=== PATIENT | male | born 1955 | race Caucasian/White ===

== ENCOUNTER 2022-11-16 23:57 | Inpatient (IN) | payer MEDICARE, OTHER ==
[2022-11-17 01:53] VITALS: BMI 14.9
[2022-11-17] MEDS ORDERED: IBUPROFEN 600 MG TABLET (FP) PO PRN (03:06)
[2022-11-17] MEDS ORDERED: BENZOCAINE/MENTHOL (CHLORASEPTIC ) LOZENGE MM PRN (03:06)
[2022-11-17] MEDS ORDERED: POLYETHYLENE GLYCOL (HEALTHYLAX) 3350 17 GM PACKET PO PRN (03:06)
[2022-11-17] MEDS ORDERED: ONDANSETRON *ODT* 4 MG TABLET SL PRN (03:06)
[2022-11-17] MEDS ORDERED: MAGNESIUM HYDROX 2400MG/30ML ORAL SUSPENSION 30 ML CUP PO PRN (03:06)
[2022-11-17] MEDS ORDERED: guaiFENesin 600 MG TABLET.ER (FP) PO PRN (03:06)
[2022-11-17] MEDS ORDERED: IBUPROFEN 400 MG TABLET (FP) PO PRN (03:06)
[2022-11-17] MEDS ORDERED: BISMUTH SUBSALICYLATE 524 MG/30 ML PO PRN (03:06)
[2022-11-17] MEDS ORDERED: LOPERAMIDE HCL 2 MG CAPSULE PO PRN (03:06)
[2022-11-17] MEDS ORDERED: NALOXONE HCL (KLOXXADO) 8 MG SPRAY NS PRN (03:06)
[2022-11-17] MEDS ORDERED: BENZONATATE 200 MG CAPSULE PO PRN (03:06)
[2022-11-17] MEDS ORDERED: MAG HYDROX/AL HYDROX/SIMETH 30 ML UNIT-DOSE CUP PO PRN (03:06)
[2022-11-17] MEDS ORDERED: NALOXONE HCL 0.4 MG/ML VIAL IM PRN (03:06)
[2022-11-17] MEDS ORDERED: chlordiazePOXIDE HCL 25 MG CAPSULE PO PRN (03:38)
[2022-11-17] MEDS ORDERED: chlordiazePOXIDE HCL 25 MG CAPSULE ONE (06:02)
[2022-11-17] MEDS: chlordiazePOXIDE HCL 25 MG CAPSULE PO SCH ×4 (06:05→22:26)
[2022-11-17] MEDS: PRENATAL VITAMINS W/ FOLIC ACID TABLET (FP) PO SCH (10:23)
[2022-11-17] MEDS ORDERED: methaDONE HCL 10 MG TABLET PO SCH (11:30)
[2022-11-17] MEDS: methaDONE 40 MG, methaDONE 30 MG PO SCH (12:00)
[2022-11-17 13:50] LABS: HEMATOCRIT 36.6 % (35.4-49); HEMOGLOBIN 11.9 GM/dL (11.7-16.9); MCH 31.6 pg (25.7-33.7); MCHC 32.5 g/dl (32.0-35.9); MEAN CELL VOLUME 97.2 fl (80-96); MEAN PLT VOLUME 7.7 fl (7.5-11.1); PLATELET COUNT 247 10^3/uL (134-434); RBC 3.77 M/mm3 (4.00-5.60); RDW 13.6 % (11.9-15.9)
[2022-11-17 13:56] LABS: POTASSIUM 3.5 mmol/L (3.5-5.1)
[2022-11-17 14:17] LABS: CALCIUM 8.1 mg/dL (8.5-10.1)
[2022-11-17 14:18] LABS: ALBUMIN 2.7 g/dl (3.4-5.0); BLOOD UREA NITROGEN 17.4 mg/dL (7-18)
[2022-11-17 14:21] LABS: CREATININE 0.9 mg/dL (0.55-1.3)
[2022-11-17 14:23] LABS: BILIRUBIN,TOTAL 0.3 mg/dL (0.2-1); TOT PROT 6.7 g/dl (6.4-8.2)
[2022-11-17] MEDS: MELATONIN 5 MG TABLETS PO SCH (22:26)
[2022-11-17] MEDS: THIAMINE HCL 100 MG TABLET (FP) PO SCH (22:26)
[2022-11-18] MEDS: methaDONE 40 MG, methaDONE 30 MG PO SCH (05:59)
[2022-11-18] MEDS: chlordiazePOXIDE HCL 25 MG CAPSULE PO SCH ×4 (05:59→22:20)
[2022-11-18] MEDS: PRENATAL VITAMINS W/ FOLIC ACID TABLET (FP) PO SCH (10:31)
[2022-11-18] MEDS: THIAMINE HCL 100 MG TABLET (FP) PO SCH (22:19)
[2022-11-18] MEDS: MELATONIN 5 MG TABLETS PO SCH (22:19)
[2022-11-18] MEDS: ACETAMINOPHEN 325 MG TABLET (FP) PO PRN (22:21)
[2022-11-19] MEDS ORDERED: chlordiazePOXIDE HCL 10 MG CAPSULE PO PRN
[2022-11-19] MEDS: chlordiazePOXIDE HCL 10 MG CAPSULE PO SCH ×4 (05:46→22:41)
[2022-11-19] MEDS: methaDONE 40 MG, methaDONE 30 MG PO SCH (05:48)
[2022-11-19] MEDS: PRENATAL VITAMINS W/ FOLIC ACID TABLET (FP) PO SCH (10:27)
[2022-11-19] MEDS ORDERED: BACITRACIN 0.9 GM PACKET TP ONE (15:11)
[2022-11-19] MEDS: ACETAMINOPHEN 325 MG TABLET (FP) PO PRN (15:47)
[2022-11-19] MEDS ORDERED: BACITRACIN ZINC 15 GM TUBE TOPICAL OINTMENT TP SCH (22:00)
[2022-11-19] MEDS: THIAMINE HCL 100 MG TABLET (FP) PO SCH (22:41)
[2022-11-19] MEDS: BACITRACIN 0.9 GM PACKET TP SCH (22:41)
[2022-11-19] MEDS: MELATONIN 5 MG TABLETS PO SCH (22:41)
[2022-11-20] MEDS: chlordiazePOXIDE HCL 10 MG CAPSULE PO SCH ×2 (06:00→17:49)
[2022-11-20] MEDS: methaDONE 40 MG, methaDONE 30 MG PO SCH (06:11)
[2022-11-20] MEDS: BACITRACIN 0.9 GM PACKET TP SCH ×2 (10:38→22:51)
[2022-11-20] MEDS: PRENATAL VITAMINS W/ FOLIC ACID TABLET (FP) PO SCH (10:38)
[2022-11-20] MEDS ORDERED: hydrOXYzine PAMOATE 25 MG CAPSULE (FP) PO ONE (20:05)
[2022-11-20] MEDS: THIAMINE HCL 100 MG TABLET (FP) PO SCH (22:51)
[2022-11-20] MEDS: MELATONIN 5 MG TABLETS PO SCH (22:51)
[2022-11-21] MEDS ORDERED: chlordiazePOXIDE HCL 10 MG CAPSULE PO ONE (05:00)
[2022-11-21] MEDS: methaDONE 40 MG, methaDONE 30 MG PO SCH (05:59)
[2022-11-21] MEDS: BACITRACIN 0.9 GM PACKET TP SCH ×2 (10:20→22:16)
[2022-11-21] MEDS: PRENATAL VITAMINS W/ FOLIC ACID TABLET (FP) PO SCH (10:20)
[2022-11-21] MEDS: amLODIPine BESYLATE 10 MG TABLET (FP) PO SCH (16:32)
[2022-11-21] MEDS: THIAMINE HCL 100 MG TABLET (FP) PO SCH (22:16)
[2022-11-21] MEDS: MELATONIN 5 MG TABLETS PO SCH (22:16)
[2022-11-22] MEDS: methaDONE 40 MG, methaDONE 30 MG PO SCH (05:46)
[2022-11-22] MEDS: BACITRACIN 0.9 GM PACKET TP SCH (10:22)
[2022-11-22] MEDS: amLODIPine BESYLATE 10 MG TABLET (FP) PO SCH (10:22)
[2022-11-22] MEDS: PRENATAL VITAMINS W/ FOLIC ACID TABLET (FP) PO SCH (10:22)
[2022-11-22 15:05] VITALS: BP 124/76; PULSE 86; RESP 18; TEMP 98.3
== END 2022-11-22 12:12 | disposition home or self-care (01) | DRG 897 ==
LOC: YASAS 23:57 → Y3N 11-17 07:07
PROVIDERS: ADMIT Allergy & Immunology; ATTEND Allergy & Immunology
PROC: HZ2ZZZZ Detoxification Services for Substance Abuse Treatment (ICD-10-PCS; principal; 2022-11-17)
DX: F10.230 Alcohol dependence with withdrawal, uncomplicated (principal); F11.20 Opioid dependence, uncomplicated; F17.210 Nicotine dependence, cigarettes, uncomplicated; F41.9 Anxiety disorder, unspecified; I10 Essential (primary) hypertension; F32.A Depression, unspecified; J45.909 Unspecified asthma, uncomplicated; R73.9 Hyperglycemia, unspecified; Z86.19 Personal history of other infectious and parasitic diseases; Z99.89 Dependence on other enabling machines and devices; W01.0XXA Fall on same level from slipping, tripping and stumbling without subsequent striking against object, initial encounter; Y92.232 Corridor of hospital as the place of occurrence of the external cause; Z28.310 Unvaccinated for COVID-19; Z28.9 Immunization not carried out for unspecified reason
CPT/HCPCS: 36415; 80053; 82962; 83036; 85027; 86780; 87635; 93005; 93010

== ENCOUNTER 2022-12-01 22:41 | Inpatient (IN) | payer MEDICARE, OTHER ==
[2022-12-01 23:29] VITALS: BMI 16.5
[2022-12-02] MEDS ORDERED: guaiFENesin 600 MG TABLET.ER (FP) PO PRN (00:12)
[2022-12-02] MEDS ORDERED: NALOXONE HCL (KLOXXADO) 8 MG SPRAY NS PRN (00:12)
[2022-12-02] MEDS ORDERED: NALOXONE HCL 0.4 MG/ML VIAL IM PRN (00:12)
[2022-12-02] MEDS ORDERED: IBUPROFEN 600 MG TABLET (FP) PO PRN (00:12)
[2022-12-02] MEDS ORDERED: POLYETHYLENE GLYCOL (HEALTHYLAX) 3350 17 GM PACKET PO PRN (00:12)
[2022-12-02] MEDS ORDERED: IBUPROFEN 400 MG TABLET (FP) PO PRN (00:12)
[2022-12-02] MEDS ORDERED: MAGNESIUM HYDROX 2400MG/30ML ORAL SUSPENSION 30 ML CUP PO PRN (00:12)
[2022-12-02] MEDS ORDERED: BENZOCAINE/MENTHOL (CHLORASEPTIC ) LOZENGE MM PRN (00:12)
[2022-12-02] MEDS ORDERED: LOPERAMIDE HCL 2 MG CAPSULE PO PRN (00:12)
[2022-12-02] MEDS ORDERED: NICOTINE POLACRILEX 2 MG GUM BUC PRN (00:12)
[2022-12-02] MEDS ORDERED: ACETAMINOPHEN 325 MG TABLET (FP) PO PRN (00:12)
[2022-12-02] MEDS ORDERED: ONDANSETRON *ODT* 4 MG TABLET SL PRN (00:12)
[2022-12-02] MEDS ORDERED: BENZONATATE 200 MG CAPSULE PO PRN (00:12)
[2022-12-02] MEDS ORDERED: BISMUTH SUBSALICYLATE 524 MG/30 ML PO PRN (00:12)
[2022-12-02] MEDS ORDERED: MAG HYDROX/AL HYDROX/SIMETH 30 ML UNIT-DOSE CUP PO PRN (00:12)
[2022-12-02] MEDS ORDERED: diazePAM 5 MG TABLET PO PRN (09:22)
[2022-12-02] MEDS ORDERED: methaDONE HCL 10 MG TABLET PO SCH (09:45)
[2022-12-02] MEDS: methaDONE 40 MG, methaDONE 30 MG PO SCH (09:47)
[2022-12-02] MEDS: diazePAM 5 MG TABLET PO SCH ×3 (10:27→22:42)
[2022-12-02] MEDS: PRENATAL VITAMINS W/ FOLIC ACID TABLET (FP) PO SCH (10:27)
[2022-12-02] MEDS: NICOTINE 14 MG/24 HOURS TOPICAL PATCH TD SCH (10:28)
[2022-12-02] MEDS: THIAMINE HCL 100 MG TABLET (FP) PO SCH (22:42)
[2022-12-02] MEDS: MELATONIN 5 MG TABLETS PO SCH (22:43)
[2022-12-03] MEDS: diazePAM 5 MG TABLET PO SCH ×4 (05:46→22:21)
[2022-12-03] MEDS: methaDONE 40 MG, methaDONE 30 MG PO SCH (05:46)
[2022-12-03] MEDS: PRENATAL VITAMINS W/ FOLIC ACID TABLET (FP) PO SCH (10:22)
[2022-12-03] MEDS: NICOTINE 14 MG/24 HOURS TOPICAL PATCH TD SCH (10:22)
[2022-12-03 10:37] LABS: POTASSIUM 4.9 mmol/L (3.5-5.1)
[2022-12-03 10:47] LABS: ALBUMIN 2.7 g/dl (3.4-5.0); BLOOD UREA NITROGEN 15.1 mg/dL (7-18)
[2022-12-03 10:48] LABS: CALCIUM 8.5 mg/dL (8.5-10.1); HEMATOCRIT 36.8 % (35.4-49); HEMOGLOBIN 11.9 GM/dL (11.7-16.9); MCH 30.6 pg (25.7-33.7); MCHC 32.4 g/dl (32.0-35.9); MEAN CELL VOLUME 94.5 fl (80-96); MEAN PLT VOLUME 8.6 fl (7.5-11.1); PLATELET COUNT 269 10^3/uL (134-434); RBC 3.89 M/mm3 (4.00-5.60); RDW 13.8 % (11.9-15.9); WHITE BLOOD COUNT 5.9 K/mm3 (4.0-10.0)
[2022-12-03 10:50] LABS: CREATININE 0.9 mg/dL (0.55-1.3)
[2022-12-03 10:52] LABS: BILIRUBIN,TOTAL 0.1 mg/dL (0.2-1)
[2022-12-03] MEDS: THIAMINE HCL 100 MG TABLET (FP) PO SCH (22:21)
[2022-12-03] MEDS: MELATONIN 5 MG TABLETS PO SCH (22:21)
[2022-12-04] MEDS: methaDONE 40 MG, methaDONE 30 MG PO SCH (05:29)
[2022-12-04] MEDS: diazePAM 5 MG TABLET PO SCH ×3 (05:29→22:17)
[2022-12-04] MEDS: PRENATAL VITAMINS W/ FOLIC ACID TABLET (FP) PO SCH (09:42)
[2022-12-04] MEDS: NICOTINE 14 MG/24 HOURS TOPICAL PATCH TD SCH (09:42)
[2022-12-04] MEDS ORDERED: LOPERAMIDE HCL 2 MG CAPSULE PO ONE (11:04)
[2022-12-04] MEDS: THIAMINE HCL 100 MG TABLET (FP) PO SCH (22:17)
[2022-12-04] MEDS: MELATONIN 5 MG TABLETS PO SCH (22:17)
[2022-12-05] MEDS: diazePAM 5 MG TABLET PO SCH ×2 (05:44→17:15)
[2022-12-05] MEDS: methaDONE 40 MG, methaDONE 30 MG PO SCH (05:44)
[2022-12-05] MEDS: PRENATAL VITAMINS W/ FOLIC ACID TABLET (FP) PO SCH (10:04)
[2022-12-05] MEDS: NICOTINE 14 MG/24 HOURS TOPICAL PATCH TD SCH (10:04)
[2022-12-05] MEDS ORDERED: amLODIPine BESYLATE 2.5 MG TABLET (FP) PO SCH (11:45)
[2022-12-05] MEDS: THIAMINE HCL 100 MG TABLET (FP) PO SCH (22:14)
[2022-12-05] MEDS: MELATONIN 5 MG TABLETS PO SCH (22:14)
[2022-12-06] MEDS: methaDONE 40 MG, methaDONE 30 MG PO SCH (05:34)
[2022-12-06] MEDS ORDERED: diazePAM 5 MG TABLET PO ONE (06:00)
[2022-12-06 09:43] VITALS: BP 147/81; PULSE 88; RESP 16; TEMP 98
== END 2022-12-06 10:30 | disposition home or self-care (01) | DRG 897 ==
LOC: YASAS 22:41 → Y6N 12-02 00:51
PROVIDERS: ADMIT Allergy & Immunology; ATTEND Surgery
PROC: HZ2ZZZZ Detoxification Services for Substance Abuse Treatment (ICD-10-PCS; principal; 2022-12-02)
DX: F10.230 Alcohol dependence with withdrawal, uncomplicated (principal); F19.280 Other psychoactive substance dependence with psychoactive substance-induced anxiety disorder; F19.282 Other psychoactive substance dependence with psychoactive substance-induced sleep disorder; F12.20 Cannabis dependence, uncomplicated; F17.213 Nicotine dependence, cigarettes, with withdrawal; F19.24 Other psychoactive substance dependence with psychoactive substance-induced mood disorder; I10 Essential (primary) hypertension; M17.0 Bilateral primary osteoarthritis of knee; Z62.810 Personal history of physical and sexual abuse in childhood; Z86.19 Personal history of other infectious and parasitic diseases; Z99.89 Dependence on other enabling machines and devices; Z56.0 Unemployment, unspecified; Z59.00 Homelessness unspecified; Z28.310 Unvaccinated for COVID-19; Z91.410 Personal history of adult physical and sexual abuse
CPT/HCPCS: 36415; 80053; 85027; 86780; 87635; 87811

== ENCOUNTER 2022-12-06 10:49 | Emergency (ER) | payer MEDICARE, OTHER ==
[2022-12-06 11:04] VITALS: BP 111/76; PULSE 90; RESP 18; TEMP 98.6; BMI 17.7
== END 2022-12-06 11:51 | disposition left against medical advice (07) ==
LOC: JER 10:49
DX: Z04.3 Encounter for examination and observation following other accident (principal)
CPT/HCPCS: 99283-25

== ENCOUNTER 2022-12-19 22:55 | Inpatient (IN) | payer MEDICARE, OTHER ==
[2022-12-19 23:30] VITALS: BMI 17.7
[2022-12-20] MEDS ORDERED: NICOTINE POLACRILEX 2 MG GUM BUC PRN (00:06)
[2022-12-20] MEDS ORDERED: NALOXONE HCL 0.4 MG/ML VIAL IM PRN (00:06)
[2022-12-20] MEDS ORDERED: LOPERAMIDE HCL 2 MG CAPSULE PO PRN (00:06)
[2022-12-20] MEDS ORDERED: BISMUTH SUBSALICYLATE 524 MG/30 ML PO PRN (00:06)
[2022-12-20] MEDS ORDERED: BENZOCAINE/MENTHOL (CHLORASEPTIC ) LOZENGE MM PRN (00:06)
[2022-12-20] MEDS ORDERED: guaiFENesin 600 MG TABLET.ER (FP) PO PRN (00:06)
[2022-12-20] MEDS ORDERED: IBUPROFEN 600 MG TABLET (FP) PO PRN (00:06)
[2022-12-20] MEDS ORDERED: IBUPROFEN 400 MG TABLET (FP) PO PRN (00:06)
[2022-12-20] MEDS ORDERED: MAGNESIUM HYDROX 2400MG/30ML ORAL SUSPENSION 30 ML CUP PO PRN (00:06)
[2022-12-20] MEDS ORDERED: BENZONATATE 200 MG CAPSULE PO PRN (00:06)
[2022-12-20] MEDS ORDERED: MAG HYDROX/AL HYDROX/SIMETH 30 ML UNIT-DOSE CUP PO PRN (00:06)
[2022-12-20] MEDS ORDERED: ONDANSETRON *ODT* 4 MG TABLET SL PRN (00:06)
[2022-12-20] MEDS ORDERED: NALOXONE HCL (KLOXXADO) 8 MG SPRAY NS PRN (00:06)
[2022-12-20] MEDS ORDERED: POLYETHYLENE GLYCOL (HEALTHYLAX) 3350 17 GM PACKET PO PRN (00:06)
[2022-12-20] MEDS ORDERED: chlordiazePOXIDE HCL 25 MG CAPSULE PO PRN (09:29)
[2022-12-20] MEDS ORDERED: methaDONE HCL 10 MG TABLET PO ONE (09:31)
[2022-12-20] MEDS ORDERED: methaDONE 40 MG, methaDONE 30 MG PO SCH (09:45)
[2022-12-20] MEDS: hydrOXYzine PAMOATE 25 MG CAPSULE (FP) PO PRN (10:18)
[2022-12-20] MEDS: PRENATAL VITAMINS W/ FOLIC ACID TABLET (FP) PO SCH (10:18)
[2022-12-20] MEDS: amLODIPine BESYLATE 2.5 MG TABLET (FP) PO SCH (10:18)
[2022-12-20] MEDS: NICOTINE 14 MG/24 HOURS TOPICAL PATCH TD SCH (10:18)
[2022-12-20] MEDS: chlordiazePOXIDE HCL 25 MG CAPSULE PO SCH ×3 (10:20→22:12)
[2022-12-20 13:41] LABS: HEMATOCRIT 33.7 % (35.4-49); HEMOGLOBIN 11.3 GM/dL (11.7-16.9); MCH 30.4 pg (25.7-33.7); MCHC 33.5 g/dl (32.0-35.9); MEAN CELL VOLUME 90.8 fl (80-96); MEAN PLT VOLUME 7.7 fl (7.5-11.1); PLATELET COUNT 228 10^3/uL (134-434); RBC 3.72 M/mm3 (4.00-5.60); RDW 14.4 % (11.9-15.9); WHITE BLOOD COUNT 5.8 K/mm3 (4.0-10.0)
[2022-12-20 13:59] LABS: POTASSIUM 3.9 mmol/L (3.5-5.1)
[2022-12-20 14:03] LABS: ALBUMIN 2.5 g/dl (3.4-5.0); BLOOD UREA NITROGEN 19.9 mg/dL (7-18)
[2022-12-20 14:06] LABS: CREATININE 0.9 mg/dL (0.55-1.3)
[2022-12-20 14:08] LABS: BILIRUBIN,TOTAL 0.3 mg/dL (0.2-1); TOT PROT 6.6 g/dl (6.4-8.2)
[2022-12-20 14:16] LABS: CALCIUM 7.8 mg/dL (8.5-10.1)
[2022-12-20] MEDS: THIAMINE HCL 100 MG TABLET (FP) PO SCH (22:12)
[2022-12-20] MEDS: MELATONIN 5 MG TABLETS PO SCH (22:12)
[2022-12-21] MEDS: chlordiazePOXIDE HCL 25 MG CAPSULE PO SCH ×2 (05:38→10:31)
[2022-12-21] MEDS ORDERED: methaDONE 40 MG, methaDONE 30 MG PO ONE (09:45)
[2022-12-21] MEDS: methaDONE 40 MG, methaDONE 30 MG PO SCH (10:27)
[2022-12-21] MEDS: amLODIPine BESYLATE 2.5 MG TABLET (FP) PO SCH (10:28)
[2022-12-21] MEDS: PRENATAL VITAMINS W/ FOLIC ACID TABLET (FP) PO SCH (10:31)
[2022-12-21] MEDS: NICOTINE 14 MG/24 HOURS TOPICAL PATCH TD SCH (11:12)
[2022-12-21] MEDS: chlordiazePOXIDE HCL 10 MG CAPSULE PO SCH ×2 (17:23→22:23)
[2022-12-21] MEDS: THIAMINE HCL 100 MG TABLET (FP) PO SCH (22:23)
[2022-12-21] MEDS: MELATONIN 5 MG TABLETS PO SCH (22:24)
[2022-12-22] MEDS ORDERED: chlordiazePOXIDE HCL 25 MG CAPSULE PO SCH (05:00)
[2022-12-22] MEDS: chlordiazePOXIDE HCL 10 MG CAPSULE PO SCH ×4 (06:00→22:40)
[2022-12-22] MEDS: methaDONE 40 MG, methaDONE 30 MG PO SCH (06:09)
[2022-12-22] MEDS: PRENATAL VITAMINS W/ FOLIC ACID TABLET (FP) PO SCH (10:23)
[2022-12-22] MEDS: NICOTINE 14 MG/24 HOURS TOPICAL PATCH TD SCH (10:23)
[2022-12-22] MEDS: amLODIPine BESYLATE 2.5 MG TABLET (FP) PO SCH (10:24)
[2022-12-22] MEDS: THIAMINE HCL 100 MG TABLET (FP) PO SCH (22:40)
[2022-12-22] MEDS: MELATONIN 5 MG TABLETS PO SCH (22:41)
[2022-12-23] MEDS ORDERED: chlordiazePOXIDE HCL 10 MG CAPSULE PO PRN
[2022-12-23] MEDS: methaDONE 40 MG, methaDONE 30 MG PO SCH (05:30)
[2022-12-23] MEDS: chlordiazePOXIDE HCL 10 MG CAPSULE PO SCH ×4 (05:30→22:27)
[2022-12-23] MEDS: hydrOXYzine PAMOATE 25 MG CAPSULE (FP) PO PRN (09:37)
[2022-12-23] MEDS: NICOTINE 14 MG/24 HOURS TOPICAL PATCH TD SCH (09:37)
[2022-12-23] MEDS: amLODIPine BESYLATE 2.5 MG TABLET (FP) PO SCH (09:37)
[2022-12-23] MEDS: PRENATAL VITAMINS W/ FOLIC ACID TABLET (FP) PO SCH (09:37)
[2022-12-23] MEDS: MELATONIN 5 MG TABLETS PO SCH (22:27)
[2022-12-23] MEDS: THIAMINE HCL 100 MG TABLET (FP) PO SCH (22:27)
[2022-12-24] MEDS: methaDONE 40 MG, methaDONE 30 MG PO SCH (05:31)
[2022-12-24] MEDS: chlordiazePOXIDE HCL 10 MG CAPSULE PO SCH ×2 (05:32→17:27)
[2022-12-24] MEDS: amLODIPine BESYLATE 2.5 MG TABLET (FP) PO SCH (10:15)
[2022-12-24] MEDS: hydrOXYzine PAMOATE 25 MG CAPSULE (FP) PO PRN (10:15)
[2022-12-24] MEDS: NICOTINE 14 MG/24 HOURS TOPICAL PATCH TD SCH (10:15)
[2022-12-24] MEDS: PRENATAL VITAMINS W/ FOLIC ACID TABLET (FP) PO SCH (10:16)
[2022-12-24] MEDS: THIAMINE HCL 100 MG TABLET (FP) PO SCH (22:19)
[2022-12-24] MEDS: MELATONIN 5 MG TABLETS PO SCH (22:19)
[2022-12-25] MEDS ORDERED: chlordiazePOXIDE HCL 10 MG CAPSULE PO ONE (05:00)
[2022-12-25] MEDS: methaDONE 40 MG, methaDONE 30 MG PO SCH (05:28)
[2022-12-25] MEDS: NICOTINE 14 MG/24 HOURS TOPICAL PATCH TD SCH ×2 (10:06→15:16)
[2022-12-25] MEDS: PRENATAL VITAMINS W/ FOLIC ACID TABLET (FP) PO SCH ×2 (10:06→15:16)
[2022-12-25] MEDS: amLODIPine BESYLATE 2.5 MG TABLET (FP) PO SCH (10:06)
[2022-12-25] MEDS ORDERED: MAG HYDROX/AL HYDROX/SIMETH 30 ML UNIT-DOSE CUP PO PRN (14:19)
[2022-12-25] MEDS ORDERED: POLYETHYLENE GLYCOL (HEALTHYLAX) 3350 17 GM PACKET PO PRN (14:19)
[2022-12-25] MEDS ORDERED: COLLOIDAL OATMEAL 1 BAR EACH TP PRN (14:19)
[2022-12-25] MEDS ORDERED: NALOXONE HCL (KLOXXADO) 8 MG SPRAY NS PRN (14:19)
[2022-12-25] MEDS ORDERED: BENZONATATE 200 MG CAPSULE PO PRN (14:19)
[2022-12-25] MEDS ORDERED: ACETAMINOPHEN 325 MG TABLET (FP) PO PRN (14:19)
[2022-12-25] MEDS ORDERED: IBUPROFEN 600 MG TABLET (FP) PO PRN (14:19)
[2022-12-25] MEDS ORDERED: NALOXONE HCL 0.4 MG/ML VIAL IVPUSH PRN (14:19)
[2022-12-25] MEDS ORDERED: BENZOCAINE/MENTHOL (CHLORASEPTIC ) LOZENGE MM PRN (14:19)
[2022-12-25] MEDS ORDERED: hydrOXYzine PAMOATE 25 MG CAPSULE (FP) PO PRN (14:19)
[2022-12-25] MEDS ORDERED: AMMONIUM LACTATE 12% LOTION 225 GM BOTTLE TP PRN (14:19)
[2022-12-25] MEDS ORDERED: guaiFENesin 600 MG TABLET.ER (FP) PO PRN (14:19)
[2022-12-25] MEDS ORDERED: LOPERAMIDE HCL 2 MG CAPSULE PO PRN (14:19)
[2022-12-25] MEDS ORDERED: METHOCARBAMOL 500 MG TABLET PO PRN (14:19)
[2022-12-25] MEDS ORDERED: IBUPROFEN 400 MG TABLET (FP) PO PRN (14:19)
[2022-12-25] MEDS ORDERED: MAGNESIUM HYDROX 2400MG/30ML ORAL SUSPENSION 30 ML CUP PO PRN (14:19)
[2022-12-25] MEDS: THIAMINE HCL 100 MG TABLET (FP) PO SCH (21:38)
[2022-12-25] MEDS: MELATONIN 5 MG TABLETS PO SCH (21:38)
[2022-12-25] MEDS: MINERAL OIL/PETROLAT/WATER TOPICAL CREAM 113 GM JAR TP SCH (21:38)
[2022-12-26] MEDS: methaDONE 40 MG, methaDONE 30 MG PO SCH ×2 (06:46→15:35)
[2022-12-26] MEDS: NICOTINE 14 MG/24 HOURS TOPICAL PATCH TD SCH ×2 (09:56→15:38)
[2022-12-26] MEDS: MINERAL OIL/PETROLAT/WATER TOPICAL CREAM 113 GM JAR TP SCH ×2 (09:56→22:14)
[2022-12-26] MEDS: PRENATAL VITAMINS W/ FOLIC ACID TABLET (FP) PO SCH ×2 (09:57→15:39)
[2022-12-26] MEDS: amLODIPine BESYLATE 2.5 MG TABLET (FP) PO SCH ×2 (09:58→15:39)
[2022-12-26] MEDS ORDERED: methaDONE HCL 40 MG DISPERSABLE TABLET PO SCH (10:00)
[2022-12-26] MEDS: THIAMINE HCL 100 MG TABLET (FP) PO SCH ×3 (15:34→23:01)
[2022-12-26] MEDS: MELATONIN 5 MG TABLETS PO SCH ×3 (15:34→22:14)
[2022-12-27] MEDS: methaDONE 40 MG, methaDONE 30 MG PO SCH ×4 (06:09→07:12)
[2022-12-27] MEDS: NICOTINE 14 MG/24 HOURS TOPICAL PATCH TD SCH ×2 (09:52→10:26)
[2022-12-27] MEDS: MINERAL OIL/PETROLAT/WATER TOPICAL CREAM 113 GM JAR TP SCH ×2 (09:52→21:15)
[2022-12-27] MEDS: PRENATAL VITAMINS W/ FOLIC ACID TABLET (FP) PO SCH ×2 (09:53→10:26)
[2022-12-27] MEDS: amLODIPine BESYLATE 2.5 MG TABLET (FP) PO SCH ×2 (09:53→10:26)
[2022-12-27] MEDS: THIAMINE HCL 100 MG TABLET (FP) PO SCH (21:14)
[2022-12-27] MEDS: MIRTAZAPINE 15 MG TABLET (FP) PO SCH (21:15)
[2022-12-28] MEDS: methaDONE 40 MG, methaDONE 30 MG PO SCH (06:28)
[2022-12-28] MEDS: MINERAL OIL/PETROLAT/WATER TOPICAL CREAM 113 GM JAR TP SCH ×2 (10:30→21:17)
[2022-12-28] MEDS: NICOTINE 14 MG/24 HOURS TOPICAL PATCH TD SCH (10:30)
[2022-12-28] MEDS: PRENATAL VITAMINS W/ FOLIC ACID TABLET (FP) PO SCH (10:31)
[2022-12-28] MEDS: amLODIPine BESYLATE 2.5 MG TABLET (FP) PO SCH (10:31)
[2022-12-28] MEDS: MIRTAZAPINE 15 MG TABLET (FP) PO SCH (21:15)
[2022-12-28] MEDS: THIAMINE HCL 100 MG TABLET (FP) PO SCH (21:15)
[2022-12-29] MEDS: methaDONE 40 MG, methaDONE 30 MG PO SCH (06:35)
[2022-12-29] MEDS: amLODIPine BESYLATE 2.5 MG TABLET (FP) PO SCH (10:04)
[2022-12-29] MEDS: NICOTINE 14 MG/24 HOURS TOPICAL PATCH TD SCH (10:04)
[2022-12-29] MEDS: PRENATAL VITAMINS W/ FOLIC ACID TABLET (FP) PO SCH (10:04)
[2022-12-29] MEDS: MINERAL OIL/PETROLAT/WATER TOPICAL CREAM 113 GM JAR TP SCH ×2 (10:04→21:10)
[2022-12-29] MEDS ORDERED: NICOTINE 14 MG/24 HOURS TOPICAL PATCH TD PRN (15:46)
[2022-12-29] MEDS: THIAMINE HCL 100 MG TABLET (FP) PO SCH (21:09)
[2022-12-29] MEDS: MIRTAZAPINE 15 MG TABLET (FP) PO SCH (21:09)
[2022-12-29] MEDS: hydrOXYzine PAMOATE 25 MG CAPSULE (FP) PO PRN (21:11)
[2022-12-30] MEDS: methaDONE 40 MG, methaDONE 30 MG PO SCH (06:48)
[2022-12-30] MEDS: PRENATAL VITAMINS W/ FOLIC ACID TABLET (FP) PO SCH (10:23)
[2022-12-30] MEDS: amLODIPine BESYLATE 2.5 MG TABLET (FP) PO SCH (10:23)
[2022-12-30] MEDS: MINERAL OIL/PETROLAT/WATER TOPICAL CREAM 113 GM JAR TP SCH ×2 (10:23→21:52)
[2022-12-30] MEDS: hydrOXYzine PAMOATE 25 MG CAPSULE (FP) PO PRN ×2 (10:25→21:26)
[2022-12-30] MEDS: MIRTAZAPINE 15 MG TABLET (FP) PO SCH (21:25)
[2022-12-30] MEDS: THIAMINE HCL 100 MG TABLET (FP) PO SCH (21:26)
[2022-12-31] MEDS: methaDONE 40 MG, methaDONE 30 MG PO SCH (06:13)
[2022-12-31] MEDS: PRENATAL VITAMINS W/ FOLIC ACID TABLET (FP) PO SCH (10:15)
[2022-12-31] MEDS: MINERAL OIL/PETROLAT/WATER TOPICAL CREAM 113 GM JAR TP SCH ×2 (10:15→21:25)
[2022-12-31] MEDS: amLODIPine BESYLATE 2.5 MG TABLET (FP) PO SCH (10:18)
[2022-12-31] MEDS: hydrOXYzine PAMOATE 25 MG CAPSULE (FP) PO PRN (17:13)
[2022-12-31] MEDS: THIAMINE HCL 100 MG TABLET (FP) PO SCH (21:25)
[2022-12-31] MEDS: MIRTAZAPINE 15 MG TABLET (FP) PO SCH (21:25)
[2023-01-01] MEDS: methaDONE 40 MG, methaDONE 30 MG PO SCH (06:41)
[2023-01-01] MEDS: PRENATAL VITAMINS W/ FOLIC ACID TABLET (FP) PO SCH (09:39)
[2023-01-01] MEDS: amLODIPine BESYLATE 2.5 MG TABLET (FP) PO SCH (09:40)
[2023-01-01] MEDS: hydrOXYzine PAMOATE 25 MG CAPSULE (FP) PO PRN ×2 (09:40→21:04)
[2023-01-01] MEDS: MINERAL OIL/PETROLAT/WATER TOPICAL CREAM 113 GM JAR TP SCH ×2 (09:48→21:03)
[2023-01-01] MEDS: MIRTAZAPINE 15 MG TABLET (FP) PO SCH (21:03)
[2023-01-01] MEDS: THIAMINE HCL 100 MG TABLET (FP) PO SCH (21:03)
[2023-01-02] MEDS: methaDONE 40 MG, methaDONE 30 MG PO SCH (06:08)
[2023-01-02] MEDS: MINERAL OIL/PETROLAT/WATER TOPICAL CREAM 113 GM JAR TP SCH ×2 (10:36→21:31)
[2023-01-02] MEDS: amLODIPine BESYLATE 2.5 MG TABLET (FP) PO SCH (10:37)
[2023-01-02] MEDS: PRENATAL VITAMINS W/ FOLIC ACID TABLET (FP) PO SCH (10:37)
[2023-01-02] MEDS: hydrOXYzine PAMOATE 25 MG CAPSULE (FP) PO PRN (17:08)
[2023-01-02] MEDS: MIRTAZAPINE 15 MG TABLET (FP) PO SCH (21:31)
[2023-01-02] MEDS: THIAMINE HCL 100 MG TABLET (FP) PO SCH (21:31)
[2023-01-03] MEDS: methaDONE 40 MG, methaDONE 30 MG PO SCH (06:13)
[2023-01-03] MEDS: MINERAL OIL/PETROLAT/WATER TOPICAL CREAM 113 GM JAR TP SCH ×2 (09:49→21:27)
[2023-01-03] MEDS: amLODIPine BESYLATE 2.5 MG TABLET (FP) PO SCH (09:50)
[2023-01-03] MEDS: PRENATAL VITAMINS W/ FOLIC ACID TABLET (FP) PO SCH (09:50)
[2023-01-03] MEDS: THIAMINE HCL 100 MG TABLET (FP) PO SCH (21:27)
[2023-01-03] MEDS: MIRTAZAPINE 15 MG TABLET (FP) PO SCH (21:27)
[2023-01-04] MEDS: methaDONE 40 MG, methaDONE 30 MG PO SCH (06:17)
[2023-01-04] MEDS: PRENATAL VITAMINS W/ FOLIC ACID TABLET (FP) PO SCH (10:35)
[2023-01-04] MEDS: amLODIPine BESYLATE 2.5 MG TABLET (FP) PO SCH (10:35)
[2023-01-04] MEDS: MINERAL OIL/PETROLAT/WATER TOPICAL CREAM 113 GM JAR TP SCH ×2 (10:35→21:23)
[2023-01-04] MEDS: MIRTAZAPINE 15 MG TABLET (FP) PO SCH (21:23)
[2023-01-04] MEDS: THIAMINE HCL 100 MG TABLET (FP) PO SCH (21:23)
[2023-01-04] MEDS: hydrOXYzine PAMOATE 25 MG CAPSULE (FP) PO PRN (21:23)
[2023-01-05] MEDS: methaDONE 40 MG, methaDONE 30 MG PO SCH (06:15)
[2023-01-05] MEDS: MINERAL OIL/PETROLAT/WATER TOPICAL CREAM 113 GM JAR TP SCH ×2 (10:13→21:25)
[2023-01-05] MEDS: PRENATAL VITAMINS W/ FOLIC ACID TABLET (FP) PO SCH (10:14)
[2023-01-05] MEDS: amLODIPine BESYLATE 2.5 MG TABLET (FP) PO SCH (10:14)
[2023-01-05] MEDS: hydrOXYzine PAMOATE 25 MG CAPSULE (FP) PO PRN (10:15)
[2023-01-05] MEDS: THIAMINE HCL 100 MG TABLET (FP) PO SCH (21:25)
[2023-01-05] MEDS: MIRTAZAPINE 15 MG TABLET (FP) PO SCH (21:25)
[2023-01-06] MEDS: methaDONE 40 MG, methaDONE 30 MG PO SCH (06:09)
[2023-01-06] MEDS: hydrOXYzine PAMOATE 25 MG CAPSULE (FP) PO PRN ×2 (07:18→21:18)
[2023-01-06] MEDS: amLODIPine BESYLATE 2.5 MG TABLET (FP) PO SCH (09:58)
[2023-01-06] MEDS: PRENATAL VITAMINS W/ FOLIC ACID TABLET (FP) PO SCH (09:58)
[2023-01-06] MEDS: MINERAL OIL/PETROLAT/WATER TOPICAL CREAM 113 GM JAR TP SCH ×2 (09:59→21:18)
[2023-01-06] MEDS: MIRTAZAPINE 15 MG TABLET (FP) PO SCH (21:18)
[2023-01-06] MEDS: THIAMINE HCL 100 MG TABLET (FP) PO SCH (21:18)
[2023-01-07] MEDS: methaDONE 40 MG, methaDONE 30 MG PO SCH (06:05)
[2023-01-07] MEDS: hydrOXYzine PAMOATE 25 MG CAPSULE (FP) PO PRN ×2 (06:06→21:19)
[2023-01-07] MEDS: amLODIPine BESYLATE 2.5 MG TABLET (FP) PO SCH (10:07)
[2023-01-07] MEDS: PRENATAL VITAMINS W/ FOLIC ACID TABLET (FP) PO SCH (10:07)
[2023-01-07] MEDS: MINERAL OIL/PETROLAT/WATER TOPICAL CREAM 113 GM JAR TP SCH ×2 (10:07→21:20)
[2023-01-07] MEDS: THIAMINE HCL 100 MG TABLET (FP) PO SCH (21:19)
[2023-01-07] MEDS: MIRTAZAPINE 15 MG TABLET (FP) PO SCH (21:19)
[2023-01-08] MEDS: methaDONE 40 MG, methaDONE 30 MG PO SCH (06:16)
[2023-01-08] MEDS: hydrOXYzine PAMOATE 25 MG CAPSULE (FP) PO PRN ×2 (06:16→21:13)
[2023-01-08] MEDS: MINERAL OIL/PETROLAT/WATER TOPICAL CREAM 113 GM JAR TP SCH ×2 (09:38→22:42)
[2023-01-08] MEDS: amLODIPine BESYLATE 2.5 MG TABLET (FP) PO SCH (09:38)
[2023-01-08] MEDS: PRENATAL VITAMINS W/ FOLIC ACID TABLET (FP) PO SCH (09:38)
[2023-01-08] MEDS: MIRTAZAPINE 15 MG TABLET (FP) PO SCH (21:13)
[2023-01-08] MEDS: THIAMINE HCL 100 MG TABLET (FP) PO SCH (21:13)
[2023-01-09] MEDS: hydrOXYzine PAMOATE 25 MG CAPSULE (FP) PO PRN ×2 (06:14→21:14)
[2023-01-09] MEDS: methaDONE 40 MG, methaDONE 30 MG PO SCH (06:15)
[2023-01-09] MEDS: MINERAL OIL/PETROLAT/WATER TOPICAL CREAM 113 GM JAR TP SCH ×2 (09:12→21:13)
[2023-01-09] MEDS: amLODIPine BESYLATE 2.5 MG TABLET (FP) PO SCH (09:12)
[2023-01-09] MEDS: PRENATAL VITAMINS W/ FOLIC ACID TABLET (FP) PO SCH (09:13)
[2023-01-09] MEDS: MIRTAZAPINE 15 MG TABLET (FP) PO SCH (21:13)
[2023-01-09] MEDS: THIAMINE HCL 100 MG TABLET (FP) PO SCH (21:13)
[2023-01-10] MEDS: methaDONE 40 MG, methaDONE 30 MG PO SCH (06:15)
[2023-01-10] MEDS: hydrOXYzine PAMOATE 25 MG CAPSULE (FP) PO PRN ×2 (06:16→21:27)
[2023-01-10] MEDS: PRENATAL VITAMINS W/ FOLIC ACID TABLET (FP) PO SCH (10:09)
[2023-01-10] MEDS: amLODIPine BESYLATE 2.5 MG TABLET (FP) PO SCH (10:09)
[2023-01-10] MEDS: MINERAL OIL/PETROLAT/WATER TOPICAL CREAM 113 GM JAR TP SCH ×2 (10:10→21:27)
[2023-01-10] MEDS: THIAMINE HCL 100 MG TABLET (FP) PO SCH (21:27)
[2023-01-10] MEDS: MIRTAZAPINE 15 MG TABLET (FP) PO SCH (21:27)
[2023-01-11] MEDS: hydrOXYzine PAMOATE 25 MG CAPSULE (FP) PO PRN ×2 (06:13→21:16)
[2023-01-11] MEDS: methaDONE 40 MG, methaDONE 30 MG PO SCH (06:13)
[2023-01-11] MEDS: amLODIPine BESYLATE 2.5 MG TABLET (FP) PO SCH (09:36)
[2023-01-11] MEDS: PRENATAL VITAMINS W/ FOLIC ACID TABLET (FP) PO SCH (09:36)
[2023-01-11] MEDS: MINERAL OIL/PETROLAT/WATER TOPICAL CREAM 113 GM JAR TP SCH (09:36)
[2023-01-11] MEDS ORDERED: MINERAL OIL/PETROLAT/WATER TOPICAL CREAM 113 GM JAR TP PRN (12:33)
[2023-01-11] MEDS: THIAMINE HCL 100 MG TABLET (FP) PO SCH (21:16)
[2023-01-11] MEDS: MIRTAZAPINE 15 MG TABLET (FP) PO SCH (21:16)
[2023-01-12] MEDS: hydrOXYzine PAMOATE 25 MG CAPSULE (FP) PO PRN (06:08)
[2023-01-12] MEDS: methaDONE 40 MG, methaDONE 30 MG PO SCH (06:08)
[2023-01-12] MEDS: PRENATAL VITAMINS W/ FOLIC ACID TABLET (FP) PO SCH (10:11)
[2023-01-12] MEDS: amLODIPine BESYLATE 2.5 MG TABLET (FP) PO SCH (10:11)
[2023-01-12] MEDS: MIRTAZAPINE 15 MG TABLET (FP) PO SCH (21:13)
[2023-01-12] MEDS: THIAMINE HCL 100 MG TABLET (FP) PO SCH (21:13)
[2023-01-13] MEDS: hydrOXYzine PAMOATE 25 MG CAPSULE (FP) PO PRN ×2 (06:15→21:34)
[2023-01-13] MEDS: methaDONE 40 MG, methaDONE 30 MG PO SCH (06:15)
[2023-01-13] MEDS: PRENATAL VITAMINS W/ FOLIC ACID TABLET (FP) PO SCH (09:37)
[2023-01-13] MEDS: amLODIPine BESYLATE 2.5 MG TABLET (FP) PO SCH (09:37)
[2023-01-13] MEDS: THIAMINE HCL 100 MG TABLET (FP) PO SCH (21:34)
[2023-01-13] MEDS: MIRTAZAPINE 15 MG TABLET (FP) PO SCH (21:34)
[2023-01-14] MEDS: hydrOXYzine PAMOATE 25 MG CAPSULE (FP) PO PRN ×2 (06:13→19:04)
[2023-01-14] MEDS: methaDONE 40 MG, methaDONE 30 MG PO SCH (06:13)
[2023-01-14] MEDS: amLODIPine BESYLATE 2.5 MG TABLET (FP) PO SCH (10:02)
[2023-01-14] MEDS: PRENATAL VITAMINS W/ FOLIC ACID TABLET (FP) PO SCH (10:02)
[2023-01-14] MEDS: THIAMINE HCL 100 MG TABLET (FP) PO SCH (21:13)
[2023-01-14] MEDS: MIRTAZAPINE 15 MG TABLET (FP) PO SCH (21:13)
[2023-01-15] MEDS: methaDONE 40 MG, methaDONE 30 MG PO SCH (06:10)
[2023-01-15] MEDS: hydrOXYzine PAMOATE 25 MG CAPSULE (FP) PO PRN ×2 (06:11→21:15)
[2023-01-15] MEDS: PRENATAL VITAMINS W/ FOLIC ACID TABLET (FP) PO SCH (09:51)
[2023-01-15] MEDS: amLODIPine BESYLATE 2.5 MG TABLET (FP) PO SCH (09:51)
[2023-01-15] MEDS: ACETAMINOPHEN 325 MG TABLET (FP) PO PRN (17:03)
[2023-01-15] MEDS: THIAMINE HCL 100 MG TABLET (FP) PO SCH (21:14)
[2023-01-15] MEDS: MIRTAZAPINE 15 MG TABLET (FP) PO SCH (21:15)
[2023-01-16] MEDS: hydrOXYzine PAMOATE 25 MG CAPSULE (FP) PO PRN ×2 (06:22→17:07)
[2023-01-16] MEDS: methaDONE 40 MG, methaDONE 30 MG PO SCH (06:22)
[2023-01-16] MEDS: amLODIPine BESYLATE 2.5 MG TABLET (FP) PO SCH (10:20)
[2023-01-16] MEDS: PRENATAL VITAMINS W/ FOLIC ACID TABLET (FP) PO SCH (10:20)
[2023-01-16] MEDS: ACETAMINOPHEN 325 MG TABLET (FP) PO PRN (17:06)
[2023-01-16] MEDS: MIRTAZAPINE 15 MG TABLET (FP) PO SCH (21:24)
[2023-01-16] MEDS: THIAMINE HCL 100 MG TABLET (FP) PO SCH (21:24)
[2023-01-17] MEDS: hydrOXYzine PAMOATE 25 MG CAPSULE (FP) PO PRN ×2 (06:10→21:04)
[2023-01-17] MEDS: methaDONE 40 MG, methaDONE 30 MG PO SCH (06:10)
[2023-01-17] MEDS: PRENATAL VITAMINS W/ FOLIC ACID TABLET (FP) PO SCH (09:31)
[2023-01-17] MEDS: amLODIPine BESYLATE 2.5 MG TABLET (FP) PO SCH (09:31)
[2023-01-17] MEDS: THIAMINE HCL 100 MG TABLET (FP) PO SCH (21:03)
[2023-01-17] MEDS: MIRTAZAPINE 15 MG TABLET (FP) PO SCH (21:03)
[2023-01-18] MEDS: hydrOXYzine PAMOATE 25 MG CAPSULE (FP) PO PRN ×2 (06:08→21:27)
[2023-01-18] MEDS: methaDONE 40 MG, methaDONE 30 MG PO SCH (06:08)
[2023-01-18] MEDS: amLODIPine BESYLATE 2.5 MG TABLET (FP) PO SCH (10:01)
[2023-01-18] MEDS: PRENATAL VITAMINS W/ FOLIC ACID TABLET (FP) PO SCH (10:01)
[2023-01-18] MEDS: THIAMINE HCL 100 MG TABLET (FP) PO SCH (21:26)
[2023-01-18] MEDS: DOXEPIN HCL 10 MG CAPSULE PO SCH (21:27)
[2023-01-19] MEDS: methaDONE 40 MG, methaDONE 30 MG PO SCH (06:37)
[2023-01-19] MEDS: amLODIPine BESYLATE 2.5 MG TABLET (FP) PO SCH (10:16)
[2023-01-19] MEDS: PRENATAL VITAMINS W/ FOLIC ACID TABLET (FP) PO SCH (10:16)
[2023-01-19] MEDS: hydrOXYzine PAMOATE 25 MG CAPSULE (FP) PO PRN ×2 (10:18→21:20)
[2023-01-19] MEDS: DOXEPIN HCL 10 MG CAPSULE PO SCH (21:19)
[2023-01-19] MEDS: THIAMINE HCL 100 MG TABLET (FP) PO SCH (21:20)
[2023-01-20] MEDS: methaDONE 40 MG, methaDONE 30 MG PO SCH (06:08)
[2023-01-20] MEDS: PRENATAL VITAMINS W/ FOLIC ACID TABLET (FP) PO SCH (09:30)
[2023-01-20] MEDS: hydrOXYzine PAMOATE 25 MG CAPSULE (FP) PO PRN ×2 (09:30→19:58)
[2023-01-20] MEDS: amLODIPine BESYLATE 2.5 MG TABLET (FP) PO SCH (09:30)
[2023-01-20] MEDS: THIAMINE HCL 100 MG TABLET (FP) PO SCH (21:07)
[2023-01-20] MEDS: DOXEPIN HCL 10 MG CAPSULE PO SCH (21:08)
[2023-01-21] MEDS: methaDONE 40 MG, methaDONE 30 MG PO SCH (06:11)
[2023-01-21] MEDS: PRENATAL VITAMINS W/ FOLIC ACID TABLET (FP) PO SCH (09:45)
[2023-01-21] MEDS: amLODIPine BESYLATE 2.5 MG TABLET (FP) PO SCH (09:45)
[2023-01-21] MEDS: hydrOXYzine PAMOATE 25 MG CAPSULE (FP) PO PRN ×2 (09:45→18:42)
[2023-01-21] MEDS: THIAMINE HCL 100 MG TABLET (FP) PO SCH (22:54)
[2023-01-21] MEDS: DOXEPIN HCL 10 MG CAPSULE PO SCH (22:54)
[2023-01-22] MEDS: methaDONE 40 MG, methaDONE 30 MG PO SCH (06:19)
[2023-01-22] MEDS: amLODIPine BESYLATE 2.5 MG TABLET (FP) PO SCH (09:32)
[2023-01-22] MEDS: PRENATAL VITAMINS W/ FOLIC ACID TABLET (FP) PO SCH (09:33)
[2023-01-22] MEDS: hydrOXYzine PAMOATE 25 MG CAPSULE (FP) PO PRN ×2 (09:34→21:28)
[2023-01-22] MEDS: DOXEPIN HCL 10 MG CAPSULE PO SCH (21:28)
[2023-01-22] MEDS: THIAMINE HCL 100 MG TABLET (FP) PO SCH (21:28)
[2023-01-23] MEDS ORDERED: methaDONE 40 MG, methaDONE 30 MG PO SCH (06:00)
[2023-01-23] MEDS: hydrOXYzine PAMOATE 25 MG CAPSULE (FP) PO PRN (06:25)
[2023-01-23 07:31] VITALS: RESP 18; TEMP 98
[2023-01-23 09:13] VITALS: BP 155/79; PULSE 102
[2023-01-23] MEDS: amLODIPine BESYLATE 2.5 MG TABLET (FP) PO SCH (09:22)
[2023-01-23] MEDS: PRENATAL VITAMINS W/ FOLIC ACID TABLET (FP) PO SCH (09:22)
== END 2023-01-23 09:24 | disposition home or self-care (01) | DRG 897 ==
LOC: YASAS 22:55 → UNDOADMIN 12-20 02:21 → Y6N 12-20 02:21 → Y5N 12-24 10:04 → Y3E 12-25 10:03 → UNDODISIN 12-25 12:50 → Y3E 12-30 10:49
PROVIDERS: ADMIT Surgery; ATTEND Psychiatry & Neurology Pain Medicine
PROC: HZ2ZZZZ Detoxification Services for Substance Abuse Treatment (ICD-10-PCS; principal; 2022-12-20)
DX: F10.230 Alcohol dependence with withdrawal, uncomplicated (principal); F11.20 Opioid dependence, uncomplicated; F14.20 Cocaine dependence, uncomplicated; F19.282 Other psychoactive substance dependence with psychoactive substance-induced sleep disorder; F19.280 Other psychoactive substance dependence with psychoactive substance-induced anxiety disorder; F12.20 Cannabis dependence, uncomplicated; F17.210 Nicotine dependence, cigarettes, uncomplicated; F19.24 Other psychoactive substance dependence with psychoactive substance-induced mood disorder; F31.9 Bipolar disorder, unspecified; F39 Unspecified mood [affective] disorder; I10 Essential (primary) hypertension; J45.909 Unspecified asthma, uncomplicated; Z62.810 Personal history of physical and sexual abuse in childhood; Z86.19 Personal history of other infectious and parasitic diseases; Z28.310 Unvaccinated for COVID-19; Z28.9 Immunization not carried out for unspecified reason
CPT/HCPCS: 36415; 80053; 85027; 86780; 86803; 87522; 87635; 87811; 93005; 93010